=== PATIENT | female | born 1950 | race Asian ===

== ENCOUNTER 2017-05-17 11:06 | Outpatient (CLI) | payer MEDICARE ==
--- NOTE | 2017-05-17 13:48 | Mammography Report ---
BILATERAL DIGITAL SCREENING MAMMOGRAM with CAD: 05/17/17 11:06:00 CLINICAL: Routine screening. COMPARISON:11/10/15 FINDINGS: There are bilateral scattered areas of fibroglandular density.Bilateral benign calcifications. No mass, architectural distortion or suspicious calcifications. IMPRESSION: No mammographic evidence of malignancy. BI-RADS CATEGORY: 2 -- Benign RECOMMENDATION: Routine mammographic screening in one year. COMMENT: Patient follow-up letters are generated by our [employer] application.
== END 2017-05-17 11:07 | disposition home or self-care (01) ==
LOC: SPVWC 11:06
PROVIDERS: ATTEND Nurse Practitioner
DX: Z12.31 Encounter for screening mammogram for malignant neoplasm of breast (principal)
CPT/HCPCS: 77067; G0202

== ENCOUNTER 2018-04-17 10:58 | Outpatient (CLI) | payer MEDICARE ==
--- NOTE | 2018-04-17 21:30 | XRay Report ---
FINAL REPORT EXAM: XR SPINE CERVICAL 2-3V HISTORY: NECK PAIN TECHNIQUE: AP, lateral, swimmer's and odontoid views of cervical spine. PRIORS: None. FINDINGS: Mild disc space narrowing, endplate sclerosis and spurring in the C5-6 level. Degenerative change also in the C1-2 articulation. No loss of height or gross malalignment of cervical vertebral bodies. No obvious osseous destruction. Prevertebral soft tissues grossly unremarkable. IMPRESSION: 1. No acute osseous abnormality. 2. Degenerative changes.
== END 2018-04-17 10:59 | disposition home or self-care (01) ==
LOC: SPVIMAG 10:58
PROVIDERS: ATTEND Internal Medicine
DX: M47.892 Other spondylosis, cervical region (principal)
CPT/HCPCS: 72040

== ENCOUNTER 2019-02-11 12:04 | Outpatient (CLI) | payer MEDICARE ==
--- NOTE | 2019-02-11 16:14 | Mammography Report ---
BILATERAL DIGITAL SCREENING MAMMOGRAM with CAD: 02/11/19 12:04:00 CLINICAL: Routine screening.Previous bilateral benign biopsies. COMPARISON:05/17/17 FINDINGS: The breasts are mostly fatty with a few bilateral residual retroareolar fibroglandular densities. Stable mild right retroareolar duct ectasia. Stable bilateral low density circumscribed nodules. Bilateral benign calcifications. No mass, architectural distortion or suspicious calcifications. IMPRESSION: No mammographic evidence of malignancy. BI-RADS CATEGORY: 2 -- Benign RECOMMENDATION: Routine mammographic screening in one year. COMMENT: Patient follow-up letters are generated by our [employer] application.
== END 2019-02-11 12:05 | disposition home or self-care (01) ==
LOC: SPVWC 12:04
PROVIDERS: ATTEND Nurse Practitioner
DX: Z12.31 Encounter for screening mammogram for malignant neoplasm of breast (principal)
CPT/HCPCS: 77067

== ENCOUNTER 2021-04-05 10:23 | Outpatient (CLI) | payer MEDICARE ==
--- NOTE | 2021-04-05 11:39 | Mammography Report ---
DIGITAL SCREENING MAMMOGRAM WITH CAD, 04/05/2021 INDICATION: Routine screening mammography. TECHNIQUE: Digital bilateral 2D mammography was obtained in the craniocaudal and mediolateral obliq ue projections. This examination was interpreted with the benefit of Computer-Aided Detection analysi s. COMPARISON: 05/17/2017 FINDINGS: Breast Density: There are scattered areas of fibroglandular density. There is no evidence of dominant mass, suspicious calcifications or architectural distortion in eithe r breast. Stable small right-sided nodules. IMPRESSION: Follow up recommendation: Routine yearly BI-RADS Category 1: Negative. A "normal" or negative report should not discourage follow up or biopsy of a clinically significant f inding. A written summary of these findings will be mailed to the patient. The patient will be entered into a mammography reporting system which will generate a reminder letter for the patient's next appointmen t at the appropriate interval. The [employer] recommends yearly mammograms starting at age 40 and continuing as l paul as a woman is in good health. Breast MRI is recommended for women with an approximate 20-25% or greater lifetime risk of breast cancer, including women with a strong family history of breast or ova sylvester cancer or who have been treated for Hodgkin's disease. Signer Name: Ezio Ya MD Signed: 04/05/2021 11:35 AM Workstation Name: [email or web address]
== END 2021-04-05 10:24 | disposition home or self-care (01) ==
LOC: SPVWC 10:23
PROVIDERS: ATTEND Internal Medicine
DX: Z12.31 Encounter for screening mammogram for malignant neoplasm of breast (principal); N64.89 Other specified disorders of breast
CPT/HCPCS: 77067

== ENCOUNTER 2022-05-03 11:16 | Outpatient (CLI) | payer MEDICARE ==
--- NOTE | 2022-05-05 08:22 | Mammography Report ---
DIGITAL SCREENING MAMMOGRAM WITH CAD, 05/03/2022 CLINICAL INFORMATION / INDICATION: Routine screening mammography. TECHNIQUE: Digital bilateral 2D mammography was obtained in the craniocaudal and mediolateral obliqu e projections. This examination was interpreted with the benefit of Computer-Aided Detection analysis . COMPARISON: 04/05/2021, 02/11/2019 FINDINGS: Breast Density: The breasts are almost entirely fatty. No dominant mass, suspicious calcifications, or architectural distortion in either breast. Post-surgical changes are again noted in both breasts. There has been no significant interval change. IMPRESSION: No mammographic evidence of malignancy. Follow up recommendation: Routine yearly screening mammogram. BI-RADS Category 2: BENIGN. A "normal" or negative report should not discourage follow up or biopsy of a clinically significant f inding. A written summary of these findings will be mailed to the patient. The patient will be entered into a mammography reporting system which will generate a reminder letter for the patient's next appointmen t at the appropriate interval. The [employer] recommends yearly mammograms starting at age 40 and continuing as l paul as a woman is in good health. Breast MRI is recommended for women with an approximate 20-25% or greater lifetime risk of breast cancer, including women with a strong family history of breast or ova sylvester cancer or who have been treated for Hodgkin's disease. Signer Name: Marianela Torres MD Signed: 05/05/2022 8:18 AM Workstation Name: [id number]
== END 2022-05-03 11:17 | disposition home or self-care (01) ==
LOC: SPVWC 11:16
PROVIDERS: ATTEND Internal Medicine
DX: Z12.31 Encounter for screening mammogram for malignant neoplasm of breast (principal)
CPT/HCPCS: 77067